=== PATIENT | male | born 1950 | race Caucasian/White ===

== ENCOUNTER 2018-06-05 08:17 | Day surgery (SDC) | payer MEDICARE ==
[~2018-06-05] VITALS: Ht 177.8 cm; Wt 93.8 kg
[2018-06-05] MEDS ORDERED: Aspirin EC81 MG PO (08:34)
[2018-06-05] MEDS ORDERED: CHOL10002 PO (08:35)
== END 2018-06-05 12:35 | disposition home or self-care (01) ==
LOC: ORSCSDS 08:17
PROVIDERS: Orthopaedic Surgery
PROC: 0LS14ZZ Reposition Right Shoulder Tendon, Percutaneous Endoscopic Approach (ICD-10-PCS; principal; 2018-06-05 10:30)
PROC: 0LQ14ZZ Repair Right Shoulder Tendon, Percutaneous Endoscopic Approach (ICD-10-PCS; principal; 2018-06-05 10:30)
PROC: 0RNJ4ZZ Release Right Shoulder Joint, Percutaneous Endoscopic Approach (ICD-10-PCS; principal; 2018-06-05 10:30)
DX: S46.011A Strain of muscle(s) and tendon(s) of the rotator cuff of right shoulder, initial encounter (principal); M75.21 Bicipital tendinitis, right shoulder; M75.41 Impingement syndrome of right shoulder; Z79.899 Other long term (current) drug therapy; Z79.82 Long term (current) use of aspirin
CPT/HCPCS: C1713; J0171; J0690; J1100; J1885; J2250; J2405; J3010; J7120

== ENCOUNTER → 2019-09-18 | Outpatient (CLI) | payer MEDICARE ==
[~2019-09-18] MED LIST: Aspirin EC81 MG PO; CHOL10002 PO
== END | disposition home or self-care (01) ==
LOC: PLD 11:39 → LAB SHORT 11:39
DX: D48.5 Neoplasm of uncertain behavior of skin (principal)
CPT/HCPCS: 88305

== ENCOUNTER → 2019-12-10 | Outpatient (CLI) | payer MEDICARE | END | disposition home or self-care (01) | LOC: PLD 12:10 → LAB SHORT 12:10 | DX: L82.1 Other seborrheic keratosis (principal) | CPT/HCPCS: 88305 ==

== ENCOUNTER → 2020-09-23 | Outpatient (CLI) | payer MEDICARE | LOC: LAB SHORT 13:14 → LAB 13:14 | DX: D22.4 Melanocytic nevi of scalp and neck (principal) | CPT/HCPCS: 88305 ==

== ENCOUNTER → 2021-01-06 | Outpatient (CLI) | payer MEDICARE | END | disposition home or self-care (01) | LOC: LAB SHORT 11:27 → LAB 11:27 | DX: L82.0 Inflamed seborrheic keratosis (principal); L82.1 Other seborrheic keratosis | CPT/HCPCS: 88305 ==

== ENCOUNTER → 2021-09-07 | Outpatient (CLI) | payer MEDICARE | END | disposition home or self-care (01) | LOC: LAB SHORT 14:48 | DX: D48.5 Neoplasm of uncertain behavior of skin (principal); L72.0 Epidermal cyst | CPT/HCPCS: 88304 ==

== ENCOUNTER 2024-10-21 06:03 | Day surgery (SDC) | payer MEDICARE ==
[2024-10-21] VITALS (13 sets, daily range): BP systolic 91–130; BP diastolic 50–84
[~2024-10-21] VITALS: Ht 177.8 cm; Wt 89.9 kg
[~2024-10-21 06:03] MED LIST changes: +MULTI-VITAMIN1 EAC2 PO; +VALA500 PO
[2024-10-21] MEDS ORDERED: Lactated Ringer's 1,000 ML IV SCH (06:25)
[2024-10-21] MEDS ORDERED: Voltaren100 GM (06:40)
--- NOTE | 2024-10-21 06:41 | NUR ---
Ambulatory in Day SurgeryPre-Op teaching done. Pt verbalizes understanding. History, Chart, Medications and Allergies reviewed before start of procedure.Patient confirms NPO status and agrees with scheduled surgery. Patient reports completing Chlorhexadine shower X2 prior to admission to hospital.Patient States Post-Procedure ride home has been arranged.GLASSES REMAIN W/
[2024-10-21] MEDS ORDERED: Bupivacaine 0.5% W/EPI 1:200000 SDV 30 ML Vial ONE (07:02)
[2024-10-21] MEDS ORDERED: Dexamethasone Sod Phos 10 MG/ML 1ML VIAL ONE (07:02)
[2024-10-21] MEDS ORDERED: Rocuronium Bromide 10 MG/ML 5ML Injection IV ONE ×2 (07:02→07:49)
[2024-10-21] MEDS ORDERED: Sugammadex Sodium 200 MG/2ML SDV (100 MG/ML) ONE (07:02)
[2024-10-21] MEDS ORDERED: FentaNYL Citrate 50 MCG/ML 2 ML Injection ONE (07:02)
[2024-10-21] MEDS ORDERED: Bupivacaine 0.25% Epi 1:200000 30 ML Vial ONE (07:02)
[2024-10-21] MEDS ORDERED: Ondansetron HCl 2 MG / ML 2ML Vial ONE (07:02)
[2024-10-21] MEDS ORDERED: propofoL 20 ML IV ONE (07:02)
[2024-10-21] MEDS ORDERED: ePHEDrine Sulfate 50 MG/ML 1ML Injection ONE (07:45)
[2024-10-21] MEDS ORDERED: HYDROmorphone HCl/Pf 1MG SYR ONE (09:05)
[2024-10-21] MEDS ORDERED: Ketorolac Tromethamine 30mg Vial ONE (10:05)
[2024-10-21] MEDS ORDERED: HYDROcodone 5-APAP 325 TAB PO PRN (10:10)
--- NOTE | 2024-10-21 11:39 | NUR ---
Discharge instructions reviewed with patient. Patient verbalizes understanding. Copy given to patient to take home. at bedside. Patient tolerating water and pudding and denies nausea. Reports pain to middle abdomen down to 1/10 post analgesic.
--- NOTE | 2024-10-21 11:44 | NUR ---
PATIENT UP TO DRESS WITH STEADY GAIT. PLAN TO DISCHARGE WITH W/C. Patient States Post-Procedure ride home has been arranged with .
== END 2024-10-21 11:48 | disposition home or self-care (01) ==
LOC: ORSCMMR 06:03 → ORD 07:30 → ORSCMMR 07:30
PROVIDERS: Surgery
PROC: 0HBAXZZ Excision of Inguinal Skin, External Approach (ICD-10-PCS; principal; 2024-10-21 07:30)
PROC: 8E0W4CZ Robotic Assisted Procedure of Trunk Region, Percutaneous Endoscopic Approach (ICD-10-PCS; principal; 2024-10-21 07:30)
PROC: 0WBH4ZX Excision of Retroperitoneum, Percutaneous Endoscopic Approach, Diagnostic (ICD-10-PCS; principal; 2024-10-21 07:30)
PROC: 0YUA4JZ Supplement Bilateral Inguinal Region with Synthetic Substitute, Percutaneous Endoscopic Approach (ICD-10-PCS; principal; 2024-10-21 07:30)
DX: K40.20 Bilateral inguinal hernia, without obstruction or gangrene, not specified as recurrent (principal); C48.0 Malignant neoplasm of retroperitoneum; L91.8 Other hypertrophic disorders of the skin; E78.5 Hyperlipidemia, unspecified; N40.0 Benign prostatic hyperplasia without lower urinary tract symptoms; Z79.899 Other long term (current) drug therapy
CPT/HCPCS: 88305; 88331; A9270; C1781; J1100; J1171; J1885; J2405; J2704; J3010; J7120